=== PATIENT | female | born 1980 | race Hispanic/Latino ===

== ENCOUNTER 2017-03-10 17:18 | Emergency (ER) | payer OTHER ==
[2017-03-10 17:52] VITALS: BP 127/68; PULSE 112; RESP 20; TEMP 98.2; O2SAT 100
--- NOTE | 2017-03-10 19:35 | ED PDOC ---
HPI: General Adult Time Seen by Provider: 03/10/17 19:17 Chief Complaint (Nursing): Lower Extremity Problem/Injury Chief Complaint (Provider): cramping pain History Per: Patient Additional Complaint(s): 36 year old female currently 25 weeks presents to emergency department complaining of upper and lower extremity cramping pain that started 2 days ago. Patient denies fever or chills. Patient states that if she stands for too long she feels immediate pain to arms and legs. No chest pain, shortness of breath or dyspnea on exertion. Patient denies any coughing or congestion. Patient denies abdominal pain or vaginal bleeding. Patient states that she has been drinking a lot of water and has been urinating frequently. She does describe urgency to urinate but denies dysuria. Patient states that yesterday she started to take magnesium thinking this would help the cramping pain. OB: Dr. Englsih Past Medical History Reviewed: Historical Data, Nursing Documentation, Vital Signs Vital Signs: Last Vital Signs Temp 98.2 F 03/10/17 17:48 Pulse 112 H 03/10/17 17:48 Resp 20 03/10/17 17:48 BP 127/68 03/10/17 17:48 Pulse Ox 100 03/10/17 19:39 - Medical History PMH: No Chronic Diseases Other PMH: - Surgical History Surgical History: No Surg Hx - Family History Family History: States: No Known Family Hx - Living Arrangements Living Arrangements: With Family - Social History Current smoker - smoking cessation education provided: No Alcohol: None Drugs: Denies - Home Medications Home Medications: Ambulatory Orders Medication Instructions Recorded Amoxicillin/Clavulanate [Augmentin 1 tab PO BID #14 tab 03/11/16 875 MG-125 MG] - Allergies Allergies/Adverse Reactions: Allergies Allergy/AdvReac Type Severity Reaction Status Date / Time No Known Allergies Allergy Verified 03/10/17 17:48 Review of Systems ROS Statement: Except As Marked, All Systems Reviewed And Found Negative Constitutional: Negative for: Fever, Chills, Weakness Cardiovascular: Negative for: Chest Pain Respiratory: Negative for: Cough, Shortness of Breath Gastrointestinal: Negative for: Nausea, Vomiting, Abdominal Pain, Diarrhea Genitourinary Female: Negative for: Vaginal Discharge, Vaginal Bleeding Musculoskeletal: Positive for: Other (cramping muscle pain to upper and lower extremities) Neurological: Negative for: Weakness, Numbness, Incoordination, Change in Speech , Confusion, Seizures, Altered Mental Status, Headache, Dizziness Physical Exam - Reviewed Nursing Documentation Reviewed: Yes - Physical Exam Appears: Positive for: Well, Non-toxic, No Acute Distress Skin: Negative for: Rash Eye Exam: Positive for: Normal appearance Neck: Positive for: Normal Cardiovascular/Chest: Positive for: Regular Rate, Rhythm Respiratory: Positive for: Normal Breath Sounds. Negative for: Wheezing, Respiratory Distress Gastrointestinal/Abdominal: Positive for: Other (Gravid nontender abdomen) Back: Negative for: Vertebral Tenderness Extremity: Positive for: Other (Mild tenderness to calves bilaterally) Neurologic/Psych: Positive for: Alert, Oriented - Laboratory Results Urine POC: Positive - ECG O2 Sat by Pulse Oximetry: 100 Pulse Ox Interpretation: Normal Medical Decision Making Medical Decision Makin year female with muscle cramps Plan: CBC CMP Magnesium Phosphorus UA IVF OB US Doppler bilateral lower extremities Disposition - Clinical Impression Clinical Impression: Muscle cramps - Patient ED Disposition Is Patient to be Admitted: Transfer of Care - Disposition Disposition: Transfer of Care Disposition Time: 19:45 Condition: STABLE Forms: [employer] (Iranian) Patient Signed Over To: Von Barber Handoff Comments: Signed out pending diagnostic testing results and final disposition
[2017-03-10] MEDS ORDERED: Sodium Chloride 0.9% 1,000 ML IV STA (19:44)
--- NOTE | 2017-03-10 20:53 | US ---
EXAM: US Duplex Bilateral Lower Extremity Veins CLINICAL HISTORY: 36 years old, female; Pain; Leg, lower and other: Cramps; Bilateral; Additional info: 25 weeks , bilateral calf pain TECHNIQUE: Real-time ultrasound scan of the veins of the bilateral lower extremities with color Doppler flow, spectral waveform analysis and compression. COMPARISON: No relevant prior studies available. FINDINGS: Right deep veins: Normal color and spectral Doppler flow. Normal compressibility. No deep vein thrombosis from common femoral to popliteal vein. Right superficial veins: Unremarkable. Left deep veins: Normal color and spectral Doppler flow. Normal compressibility. No deep vein thrombosis from common femoral to popliteal vein. Left superficial veins: Unremarkable. Soft tissues: No popliteal cyst. IMPRESSION: 1. No evidence of DVT within lower extremities.
--- NOTE | 2017-03-10 20:57 | US ---
EXAM: US After First Trimester, Transabdominal CLINICAL HISTORY: 36 years old, female; Pain; Other: Leg cramps; Gestational age or lmp: 09/17/16; ; Additional info: 25 weeks , muscle cramps TECHNIQUE: Real-time transabdominal obstetrical ultrasound of the maternal pelvis and a second or third trimester with image documentation. COMPARISON: No relevant prior studies available. FINDINGS: Fetus: Single live intrauterine gestation. Heart rate: heart rate of 150 beats per minute. Presentation: Cephalic. Placenta: Posterior fundal. No placenta previa or abruption. Amniotic fluid: Normal. Anatomy: No gross anomaly is appreciated. BIOMETRICS Gestational age by US: Estimated gestational age of 25 weeks 3 days by measurements. EFW: Estimated weight of 812 g (67.8%). BPD: 6.3 cm, correlating with 25 weeks 4 days. HC: 23.2 cm, correlating with 25 weeks 1 day. AC: 20.3 cm, correlating with 24 weeks 6 days. FL: 4.9 cm, correlating with 26 weeks 2 days. MATERNAL: Uterus: Unremarkable. No myometrial mass. Cervix: No cervical dilatation or effacement. Adnexa: Ovaries not visualized. No adnexal masses. Free fluid: No significant free fluid. IMPRESSION: 1. Single live intrauterine gestation.
[2017-03-10 21:10] LABS: BASO % 0.3 % (0.0-2.0); EOS % 0.3 % (0.0-4.0); HEMOGLOBIN 10.3 g/dL (12.0-16.0); LYMPH # 1.3 K/uL (1.0-4.3); LYMPH % 9.5 % (20.0-40.0); MEAN CELL VOLUME 93.2 fl (81.0-99.0); MEAN CORPUSCULAR HEMOGLOBIN 32.6 pg (27.0-31.0); MEAN CORPUSCULAR HGB CONC 34.9 g/dL (33.0-37.0); MEAN PLATELET VOLUME 7.4 fl (7.2-11.7); MONO % 7.7 % (0.0-10.0); NEUT # 11.1 K/uL (1.8-7.0); NEUT % 82.2 % (50.0-75.0); PLATELET COUNT 199 K/uL (130-400); RBC 3.15 Mil/uL (3.80-5.20); RED CELL DISTRIBUTION WIDTH 12.9 % (11.5-14.5); WHITE BLOOD COUNT 13.6 K/uL (4.8-10.8)
[2017-03-10 21:25] LABS: SQUAMOUS EPITHIAL 6 /hpf (0-5); URINE BACTERIA OCC (<OCC); URINE BILIRUBIN NEGATIVE (NEGATIVE); URINE BLOOD NEGATIVE (NEGATIVE); URINE CLARITY SLIGHTY-CLOUDY (Clear); URINE COLOR STRAW (YELLOW); URINE GLUCOSE (UA) NEG (Normal); URINE LEUKOCYTE ESTERASE LARGE Leu/uL (Negative); URINE NITRATE NEGATIVE (NEGATIVE); URINE PROTEIN NEGATIVE (NEGATIVE); URINE UROBILINOGEN 0.2-1.0 mg/dL (0.2-1.0)
[2017-03-10 21:34] LABS: ALB/GLOB RATIO 0.9 (1.0-2.1); ALBUMIN 3.1 g/dL (3.5-5.0); ALT/SGPT 42 U/L (9-52); AST/SGOT 31 U/L (14-36); BLOOD UREA NITROGEN 6 mg/dl (7-17); CALCIUM 8.4 mg/dL (8.4-10.2); GFR AFRICAN-AMERICAN > 60; GFR NON-AFRICAN AMERICAN > 60; MAGNESIUM 2.2 MG/DL (1.6-2.3)
[2017-03-10 21:51] LABS: ANISOCYTOSIS MODERATE; BANDS 4 % (0-2); HYPOCHROMIC SLIGHT; LYMPHOCYTE 11 % (20-50); MONOCYTE 9 % (0-10); NEUTROPHIL 76 % (42-75); OVALOCYTES SLIGHT; PLATELET ESTIMATE NORMAL (NORMAL); TOTAL CELLS COUNTED 100
--- NOTE | 2017-03-10 22:28 | ED PDOC ---
"- Laboratory Results Result Diagrams: 03/10/17 21:06 03/10/17 21:06 Urine POC: Positive - ECG O2 Sat by Pulse Oximetry: 100 - Progress ED Course And Treament: DUPLEX LEGS: NO DVT US PELVIC: SLIUP FHR 150 FLU NEG pelvic us: IMPRESSION: 1. Single live intrauterine gestation. DIRK VILLAFUERTE | Final Radiology Report CONFIDENTIALITY STATEMENT This report is intended only for use by the referring physician, and only in accordance with law. If you received this in error, call [phone]. Page 2 of 2 Thank you for allowing us to participate in the care of your patient. Dictated and Authenticated by: Ajay Del Rosario MD duplex : neg for dvt NS 1 liter . d/w patient. She does not want keflex for uti at this time. Plans to d/w her ob tomorrow am prior to starting. Feels improved. Disposition - Clinical Impression Clinical Impression: Muscle cramps, UTI (urinary tract infection) - POA Present On Arrival: None - Disposition Disposition: Routine/Home Disposition Time: 22:27 Condition: FAIR Prescriptions: Cephalexin [Keflex] 500 mg PO QID #20 capsule Instructions: Urinary Tract Infection in Women (DC) Forms: [employer] (Vietnamese)"
--- NOTE | 2017-03-11 09:30 | CARD ---
APPROVED REPORT EKG Measurement Heart [id number] MD [id number] <Conclusion> Normal sinus rhythm Normal ECG
== END 2017-03-10 23:39 | disposition home or self-care (01) ==
LOC: H.ER 17:18
DX: O23.42 Unspecified infection of urinary tract in pregnancy, second trimester (principal); Z3A.25 25 weeks gestation of pregnancy
CPT/HCPCS: 76815; 80053; 81003; 81025; 82550; 83735; 84100; 85025; 87804; 93005; 93970; 99284; J7040

== ENCOUNTER 2017-03-15 10:54 | Emergency (ER) | payer OTHER ==
[2017-03-15 11:50] VITALS: BMI 22.0
[2017-03-15] MEDS ORDERED: Betamethasone Soluspan 30 mg/5mL Inj Susp IM ONE (13:03)
--- NOTE | 2017-03-15 14:45 | OBHP ---
Datetime: 03/15/2017 12:11 IP Adm Impression: , intrauterine Admit Comment, IP Provider: 36 y/o female 25 wks gestation (DANIEL 06/25/17) found to have low YAKELIN from Growth US taken today. Patient denies abdominal/pelvic pain, VB, or LOF. Reports movement. Pt states that 4 days ago, she was evaluated in the ED for generalized muscle cramps after recently recovering from a URI. Electrolyes and CK were normal, patient was hydrated and D/C. OB U/S done in E D was normal. ROS: Denies CP, SOB, Cough, dysuria, urgency, fever, chills, headache, blurry vision. PNC: Seen at [facility] by Dr. English. hx significant for AMA and late registr ation (20 wks). Pt denies any abnormal U/S or lab tests OBHx: 1 prior 7+ years ago, full term, no complications PMHx: Denies PSurgHx: Denies Medication: None, takes herbal supplements. Allergies: NKDA Social: negative x3 habits VSS, afebrile General: NAD Cardio: RRR, no murmurs Resp: CTABL, no wheezing Abdomen: Gravid, NT Extremities: No edema FHR: 150, reactive, no decels Tocometer: no active CTX Assessment: IUP at 25 wks gestation with low YAKELIN Plan: R/U PROM. Pending U/S report showing no previa, will perform speculum to check for pooling a nd ferns test. Betamethasone 12mg IM x1 The patient was seen and examined with the resident I agree with the note. Sterile speculum exam i nserted no pooling noted. Patient requesting another sonogram refusing steroids. EGA AdmitDate IP: 25.3 Vital Signs Provider: Reviewed; Within Normal Limits IP Chief Complaint: Suspected ruptured membranes
--- NOTE | 2017-03-15 17:04 | US ---
HISTORY: Low YAKELIN COMPARISON: Comparison is made to the previous study dated 03/10/2017 TECHNIQUE: Transabdominal ultrasound examination of the pelvis was performed. FINDINGS: UTERUS: Again seen is single intrauterine live seen at cephalic presentation at the time of this exam. The BPD measures 6.6 centimeter which corresponding to gestational age of 26 weeks 3 days. The head circumference measures 23.5 centimeter which corresponding to gestational age of 25 weeks 4 days. The femoral length is 4.9 centimeter which corresponding to gestational age of 26 weeks 4 days. The amniotic fluid index is 8.93 centimeter. The heart rate is 145 BPM. ENDOMETRIUM: Intrauterine live CERVIX: The cervix is closed measures 4.7 centimeter. RIGHT OVARY: Was not visualized in this exam LEFT OVARY: Was not visualized in this exam. FREE FLUID: No significant free fluid noted. OTHER FINDINGS: None. IMPRESSION: Single intrauterine live with ultrasound estimated gestational age of 25 weeks 5 days 1 week 6 days. Estimated date of delivery by ultrasound is 06/23/2017. The amniotic fluid index is 8.93 centimeter.
== END 2017-03-15 17:35 | disposition home or self-care (01) ==
LOC: H.EROB2 10:54
DX: O26.892 Other specified pregnancy related conditions, second trimester (principal); Z3A.25 25 weeks gestation of pregnancy

== ENCOUNTER 2017-03-16 16:28 | Emergency (ER) | payer OTHER ==
[2017-03-16 16:32] VITALS: BMI 21.2
[2017-03-16] MEDS ORDERED: Betamethasone Soluspan 30 mg/5mL Inj Susp IM ONE (17:32)
[2017-03-16 22:39] VITALS: BP 103/56; PULSE 77; RESP 18; TEMP 98.8; O2SAT 99
--- NOTE | 2017-03-17 09:07 | OBHP ---
Datetime: 03/16/2017 08:53 IP Adm Impression: , intrauterine ; No Active Labor IP Admit Plan: Observation/Evaluation; Discharge home Admit Comment, IP Provider: 36-year-old female at 25 weeks and 5 days gestational age presents to [facility] ED for second dose of betamethasone. Receiving steroid course due to finding of low amniotic fluid on recent ultrasound. Patient without complaints at this time. Patient denies any contractions, vagin al bleeding, leakage of fluids. Patient reports good movement. Discussed plan with patient and all patient questions answered. IP Hx Assessment: The History has been Reviewed and is Current EGA AdmitDate IP: 25.4 Vital Signs Provider: Reviewed; Within Normal Limits IP Chief Complaint: Other
== END 2017-03-16 18:26 | disposition home or self-care (01) ==
LOC: H.EROB2 16:28
DX: Z23 Encounter for immunization (principal); Z3A.25 25 weeks gestation of pregnancy
CPT/HCPCS: 96372; 99283; J0702

== ENCOUNTER 2017-06-23 15:45 | Emergency (ER) | payer OTHER ==
--- NOTE | 2017-06-23 20:35 | OBDCSUM ---
Datetime: 06/23/2017 16:52 Discharged to, Provider: Home Follow up at, Provider: Disch Instr Activity: Normal activity Disch Instr Diet: Regular Discharge Diagnosis, Provider: Erick Labor - Undelivered Discharge Time: 06/23/2017 17:00 Follow up in weeks, Provider: as scheduled on 06/29/17 Disch Referrals: None
--- NOTE | 2017-06-23 20:35 | OBHP ---
Datetime: 06/23/2017 16:30 IP Adm Impression: Term, intrauterine ; No Active Labor; Intact Membranes IP Admit Plan: Discharge home Admit Comment, IP Provider: IUP at term c/o CTX for 2-3d; more regualr CTX q 20m; No SROM; N o VB; +FM PNC: CP Dr English : chart rev'd - GBS+ PMH: lizet PSH: lizet CHACKO POBGYNH: x 1 PSOH; Denies smoking ETOH drugs A: IUP at 39w not in labor GBS+ PLAN: dischsagre home and follow up next week as scheduled Extremities - PN: Normal Abdomen - PN: Normal HEENT - PN: Normal General - PN: Normal Presentation-Admit: Vertex Membranes, Provider: Intact Pool Provider: Negative IP Hx Assessment: The History has been Reviewed and is Current EGA AdmitDate IP: 39.6 IP Chief Complaint: Uterine contractions FHR Category Provider Fetus A: Category I Dilatation, Provider: FT Genitourinary Exam: Normal
[2017-06-23 21:35] VITALS: RESP 18; TEMP 98.7
== END 2017-06-23 17:00 | disposition home or self-care (01) ==
LOC: H.EROB2 15:45
DX: O26.93 Pregnancy related conditions, unspecified, third trimester (principal); R10.2 Pelvic and perineal pain; Z3A.39 39 weeks gestation of pregnancy

== ENCOUNTER 2017-06-25 05:04 | Emergency (ER) | payer OTHER ==
[2017-06-25 07:14] VITALS: BMI 22.1
--- NOTE | 2017-06-25 09:09 | OBHP ---
Datetime: 06/25/2017 09:02 IP Adm Impression: Term, intrauterine ; No Active Labor; Intact Membranes IP Admit Plan: Observation/Evaluation; Discharge home Admit Comment, IP Provider: 36-year-old 001 at 40 weeks and 1 day gestational age presents to OB ED complaining of contractions. Patient denies any vaginal bleeding or leakage of fluids. Patient reports good movement. Patient reports irregular contractions but states that she is fairly com fortable at this time. Otherwise, patient without complaints. Past medical history denies Past surgical history denies Medications vitamins No known drug allergies Obstetrical history 1 Social history denies tobacco, drugs, alcohol Physical exam: Refer to physical exam findings Assessment: G 2 P1 at 40 weeks gestational age, no active labor at this time. Both maternal well-being and fet al well-being reassuring at this time. Plan: Discussed options with patient including augmentation or expected management and discharged home. Patient opting to go home to wait for active labor. Patient has follow-up scheduled in office in 2-3 days. Patient discharged home with labor precautions. Pelvic Type - PN: Adequate Extremities - PN: Normal Abdomen - PN: Normal Neurologic - PN: Normal HEENT - PN: Normal General - PN: Normal FHR - Baseline A Provider: 120s Membranes, Provider: Intact Contraction Comments Provider: q8-10min IP Hx Assessment: The History has been Reviewed and is Current EGA AdmitDate IP: 40.1 Vital Signs Provider: Reviewed; Within Normal Limits IP Chief Complaint: Uterine contractions NICHD Variability Prov Fetus A: Moderate 6-25bpm NICHD Accel Fetus A IP Provider: [id number] FHR Category Provider Fetus A: Category I NICHD Decel Fetus A IP Provider: None Dilatation, Provider: 2 Effacement, Provider: long Station, Provider: -3 Genitourinary Exam: Normal
[2017-06-25 15:29] VITALS: BP 105/56; PULSE 68; O2SAT 100
== END 2017-06-25 08:30 | disposition home or self-care (01) ==
LOC: H.EROB2 05:04 → H.EROB 05:41 → H.EROB2 08:30
DX: O47.1 False labor at or after 37 completed weeks of gestation (principal); O48.0 Post-term pregnancy; Z3A.40 40 weeks gestation of pregnancy; O26.93 Pregnancy related conditions, unspecified, third trimester; R10.2 Pelvic and perineal pain

== ENCOUNTER 2017-06-25 16:48 | Inpatient (IN) | payer OTHER ==
[2017-06-25 17:14] VITALS: BMI 23.1
[2017-06-25] MEDS ORDERED: Oxytocin 30 units/LR 500ML 30 U/500 ML BAG IV SCH (17:15)
[2017-06-25] MEDS ORDERED: Lactated Ringer's 1,000 ML IV SCH (17:15)
[2017-06-25] MEDS ORDERED: Penicillin G Potassium 5 MU in Sodium Chloride 0.9% 50 ML IVPB ONE (17:18)
[2017-06-25] MEDS ORDERED: Penicillin G 5 Million Unit Vial IVPB ONE (17:47)
[2017-06-25 17:59] LABS: BASO % 0.3 % (0.0-2.0); EOS # 0.1 K/uL (0.0-0.7); EOS % 0.5 % (0.0-4.0); HEMOGLOBIN 11.3 g/dL (12.0-16.0); LYMPH # 1.7 K/uL (1.0-4.3); LYMPH % 15.2 % (20.0-40.0); MEAN CELL VOLUME 86.6 fl (81.0-99.0); MEAN CORPUSCULAR HEMOGLOBIN 29.6 pg (27.0-31.0); MEAN CORPUSCULAR HGB CONC 34.2 g/dL (33.0-37.0); MEAN PLATELET VOLUME 8.4 fl (7.2-11.7); MONO # 0.7 K/uL (0.0-0.8); MONO % 6.7 % (0.0-10.0); NEUT # 8.6 K/uL (1.8-7.0); NEUT % 77.3 % (50.0-75.0); NRBC % 0.1 % (0.0-0.0); RBC 3.8 Mil/uL (3.80-5.20); RED CELL DISTRIBUTION WIDTH 12.9 % (11.5-14.5); WHITE BLOOD COUNT 11.1 K/uL (4.8-10.8)
[2017-06-25] MEDS ORDERED: Lidocaine 2% Inj (20ml) ONE (17:59)
--- NOTE | 2017-06-25 18:24 | OBADHP ---
Datetime: 06/25/2017 17:13 Admit Comment, IP Provider: CC: Ctx HPI: 36 @ 40.1wks IUP presents to [facility] for ctx. pt was seen earlier today for ctx and was fou nd to be 2cm on exam. Pt wanted to go home, and was d/c home. Pt states that since her d/c she contin ued to have ctx, and they are more intense and frequent now. No VB, LOF and good FM. MD: Irish ObHx: NVD x 1 PMH: denies SurgH: denies Allergies: NKDA Meds: PNV FH: denies SH: denies tobacco, drugs, alcohol PE Refer to physical exam findings Cervx: /-1 FM: 140, catagory I A/P: 36 YO at 40.1wks IUP is admitted for active labor at this time. GBS pos, HIV neg, RPR ne g. Pt does not want epidural at this time and does not want to be induced. -admit pt -intiate labor protocol -blood work -IVF -continue monitor Pt seen and discussed with attending Jessa Carr, PGY I Addendum: I saw on exam and patient presentation. Patient in active labor. heart tracing reassuring. A dmit patient for management of labor and delivery. Discussed plan with patient and all patient questi ons answered. [place] Pelvic Type - PN: Adequate Extremities - PN: Normal Abdomen - PN: Normal Back - PN: Not Done Breast - PN: Not Done Lungs - PN: Normal Heart - PN: Normal Thyroid - PN: Not Done Neurologic - PN: Normal HEENT - PN: Normal General - PN: Normal FHR - Baseline A Provider: 130 Vital Signs Provider: Reviewed; Within Normal Limits IP Chief Complaint: Uterine contractions NICHD Variability Prov Fetus A: Moderate 6-25bpm NICHD Accel Fetus A IP Provider: [id number] FHR Category Provider Fetus A: Category I Dilatation, Provider: 7 Effacement, Provider: 100 Station, Provider: -1 Genitourinary Exam: Normal DTRs - PN: Not Done EGA AdmitDate IP: 40.1 IP Adm Impression: Term, intrauterine IP Admit Plan: Admit to unit; Initiate labor protocol Datetime: 06/25/2017 09:02 Membranes, Provider: Intact Contraction Comments Provider: q8-10min IP Hx Assessment: The History has been Reviewed and is Current NICHD Decel Fetus A IP Provider: None Datetime: 06/23/2017 16:30 Presentation-Admit: Vertex Pool Provider: Negative
[2017-06-25] MEDS ORDERED: Benzocaine/Menthol SPRAY TOP PRN ×2 (19:51→22:54)
[2017-06-25] MEDS ORDERED: Oxycodone/Acetaminophen 5/325 mg Tab PO PRN ×4 (19:51→22:54)
--- NOTE | 2017-06-25 20:02 | OBDS ---
DELIVERY PERSONNEL Delivery Doctor: Steven Beasley MD MATERNAL INFORMATION Delivery Anesthesia: Local Medications in Delivery: Pitocin 30 units in 500 ml lr Estimated Blood Loss (ml): 200 Placenta Cultured: No Maternal Complications: None Provider Comments: Normal spontaneous vaginal delivery. Patient delivered viable infant male with Apgars of 9 and 9 at one and 5 minutes respectively. Inf ant delivered via KALLI position. Placenta delivered spontaneously. Laceration repaired, as above. Uter us firm and appropriately hemostatic following delivery. No complications. Patient tolerated delivery and repair well. Estimated blood loss 200 mL. LABOR SUMMARY EDC: 06/24/2017 00:00 No. Babies in Womb: 1 Attempted: No Labor Anesthesia: None LABOR INFORMATION Reason for Induction: Not Applicable Onset of Labor: 06/25/2017 07:00 Complete Dilatation: 06/25/2017 19:00 Oxytocin: N/A Group B Beta Strep: Positive Antibiotics # of Doses: 1 Antibiotics Time of Last Dose: 1735 Steroids Given: None Reason Steroids Not Administered: Not Applicable MEMBRANES Membranes Rupture Method: Spontaneous Rupture of Membranes: 06/25/2017 18:25 Length of Rupture (hrs): 0.87 Amniotic Fluid Color: Light Meconium Amniotic Fluid Amount: Small STAGES OF LABOR Stage 1 hrs: 12 Stage 1 min: 0 Stage 2 hrs: 0 Stage 2 min: 17 Stage 3 hrs: 0 Stage 3 min: 7 Total Time in Labor hrs: 12 Total Time in Labor min: 24 VAGINAL DELIVERY Laceration Extension: First Degree Laceration Type: Perineal Laceration Repair Note: First-degree vaginal laceration. Area infiltrated with 2% lidocaine. Lacerat ion repaired with 2. 0 Rapide. Patient tolerated well. Initial Vag Sponge Count: 10 Final Vag Sponge Count: 10 Initial Vag Sharps Count: 1 Final Vag Sharps Count: 1 Sponge Count Correct: Yes Sharps Count Correct: Yes BABY A INFORMATION Delivery Date/Time: 06/25/2017 19:17 Method of Delivery: Vaginal Born in Route : No : N/A Forceps: N/A Vacuum Extraction: N/A Shoulder Dystocia : No SHOULDER DYSTOCIA BABY A Delivery Date/Time: 06/25/2017 19:17 PRESENTATION/POSITION BABY A Presentation: Cephalic Cephalic Presentation: Vertex Vertex Position: Right Occipital Anterior Breech Presentation: N/A PLACENTA INFORMATION BABY A Placenta Delivery Time : 06/25/2017 19:24 (Annotations: Data stored by N on behalf of user) Placenta Method of Delivery: Expressed Placenta Status: Delivered SCORES BABY A Heart Rate 1 min: >100 bpm Resp Effort 1 min: Good Cry Reflex Irritability 1 min: Cough or Sneeze or Pulls Away Muscle Tone 1 min: Active Motion Color 1 min: Body [place], Extremities Blue Resuscitation Effort 1 min: Tactile Stimulation SCORE 1 MIN: 9 Heart Rate 5 min: >100 bpm Resp Effort 5 min: Good Cry Reflex Irritability 5 min: Cough or Sneeze or Pulls Away Muscle Tone 5 min: Active Motion Color 5 min: Body [place], Extremities Blue Resuscitation Effort 5 min: N/A SCORE 5 MIN: 9 INFORMATION BABY A Gestational Age at Delivery: 40.1 Gestational Status: Term Outcome : Liveborn Infant Condition : Stable Sex: Male CORD INFORMATION BABY A No. Cord Vessels: 3 (Annotations: Data stored by N on behalf of user) Infant Suction: Mouth; Nose
[2017-06-26] MEDS: Multivitamin With Minerals Tab PO SCH (08:47)
[2017-06-26 08:48] LABS: HEMOGLOBIN 10.6 g/dL (12.0-16.0); MEAN CELL VOLUME 86.9 fl (81.0-99.0); MEAN CORPUSCULAR HEMOGLOBIN 29.7 pg (27.0-31.0); MEAN CORPUSCULAR HGB CONC 34.2 g/dL (33.0-37.0); RBC 3.57 Mil/uL (3.80-5.20); RED CELL DISTRIBUTION WIDTH 12.6 % (11.5-14.5); WHITE BLOOD COUNT 13.8 K/uL (4.8-10.8)
[2017-06-26] MEDS ORDERED: Multivitamin With Minerals Tab PO SCH (09:00)
--- NOTE | 2017-06-26 12:09 | OBPPN ---
Datetime: 06/26/2017 12:06 PP Pain Prov: Within normal limits PP Nausea Prov: Denies PP Flatus Prov: Yes PP Breasts Prov: Normal PP Heart Prov: Normal PP Lungs Prov: Normal PP Abdomen/Uterus Prov: Normal PP Lochia Prov: Normal PP Vulva/Perineum Prov: Normal PP CVA Tenderness Prov: Normal PP Extremities Prov: Normal PP Comments Phys Exam Prov: fundus firm under umbilicus PP Impression Prov: Normal progression PP Plan Prov: Continue present management PP Progress Note Prov: Patient denies CP, no SOB, no N/V, tolerating PO diet, ambulating/voiding, mi ld lochia A/P 1. Continue orders 2. PErcocet/Motrin prn pain 3. ENcourage ambulation/ IP PP Procedures: None Vital Signs Provider PP: Reviewed; Within Normal Limits
[2017-06-27] MEDS: Multivitamin With Minerals Tab PO SCH (08:47)
--- NOTE | 2017-06-27 10:12 | OBDCSUM ---
Datetime: 06/25/2017 07:53 Discharge Instructions, Provider: Routine instructions given Discharge Diagnosis, Provider: Term Delivered Discharge Time: 06/27/2017 10:12 Disch Activity Restrictions: No sexual activity; Nothing in vagina - [place], tampons, douche Discharge Comment, Provider: p: d/c home perineal hygiene and care pt states she takes spirulina and eats well. does not plan to take pnv. f/u 4-6wks w/ ob drKirby or prn Contraception after Delivery: Undecided
--- NOTE | 2017-06-27 10:13 | OBPPN ---
Datetime: 06/27/2017 10:07 PP Pain Prov: Within normal limits PP Nausea Prov: Denies PP Flatus Prov: Yes PP Breasts Prov: Normal PP Heart Prov: Normal PP Lungs Prov: Normal PP Abdomen/Uterus Prov: Normal PP Lochia Prov: Normal PP Vulva/Perineum Prov: Not Done PP Extremities Prov: Normal PP Progress Prov: Normal PP Comments Phys Exam Prov: fundus firm nt @2cm below umbilicus PP Impression Prov: Normal progression PP Plan Prov: Discharge PP Progress Note Prov: s: no c/o. + i: s/p doing well p: d/c home perineal hygiene and care pt states she takes spirulina and eats well. does not plan to take pnv. f/u 4-6wks w/ ob drKirby or prn IP PP Procedures: None Vital Signs Provider PP: Within Normal Limits
[2017-06-27 18:50] VITALS: BP 107/58; PULSE 83; RESP 20; TEMP 97.8; O2SAT 100
== END 2017-06-27 12:40 | disposition home or self-care (01) | DRG 373 ==
LOC: H.EROB2 16:48 → H.L&D 17:15 → H.OB/GYN 21:52
PROVIDERS: ADMIT Obstetrics & Gynecology; ATTEND Obstetrics & Gynecology
PROC: 10E0XZZ Delivery of Products of Conception, External Approach (ICD-10-PCS; principal; 2017-06-25)
PROC: 0HQ9XZZ Repair Perineum Skin, External Approach (ICD-10-PCS; 2017-06-25)
PROC: 4A1HXCZ Monitoring of Products of Conception, Cardiac Rate, External Approach (ICD-10-PCS; 2017-06-25)
DX: O48.0 Post-term pregnancy (principal); O70.0 First degree perineal laceration during delivery; O99.824 Streptococcus B carrier state complicating childbirth; Z3A.40 40 weeks gestation of pregnancy; Z37.0 Single live birth